=== PATIENT | female | born 1960 | race Caucasian/White ===

== ENCOUNTER 2023-08-20 14:01 | Emergency (ER) | payer OTHER ==
[~2023-08-20] VITALS: Ht 162.6 cm; Wt 63.5 kg
[2023-08-20] MEDS ORDERED: ACETAMINOPHEN ES 500 MG TABLET ONE (14:38)
[2023-08-20] MEDS ORDERED: ACETAMINOPHEN ES 500 MG TABLET PO ONE (15:00)
[2023-08-20 17:05] VITALS: BP 122/75; TEMP 98.3; O2SAT 97
== END 2023-08-20 17:03 | disposition home or self-care (01) ==
LOC: ER 14:05
DX: S00.83XA Contusion of other part of head, initial encounter (principal); I10 Essential (primary) hypertension; W01.0XXA Fall on same level from slipping, tripping and stumbling without subsequent striking against object, initial encounter; Y93.89 Activity, other specified; Y92.89 Other specified places as the place of occurrence of the external cause; Y99.8 Other external cause status
CPT/HCPCS: 99284; 70450; 73564; A6403